=== PATIENT | female | born 1970 ===

== ENCOUNTER 2020-10-16 14:27 | Observation (INO) | payer OTHER ==
[2020-10-16] MEDS ORDERED: SODIUM CHLORIDE 0.9% 1000 ML 1,000 ML IV ONE (15:15)
[2020-10-16] MEDS ORDERED: MORPHINE 4 MG/1 ML INJ IV ONE (15:15)
[2020-10-16] MEDS ORDERED: ONDANSETRON 4 MG/2 ML INJ IV ONE (15:15)
--- NOTE | 2020-10-16 15:43 | Emergency Department Report ---
ED Abdominal Pain HPI - General Chief Complaint: Abdominal Pain Stated Complaint: N/V ABD PAINS Time Seen by Provider: 10/16/20 15:14 Source: patient Mode of arrival: Ambulatory Limitations: No Limitations - History of Present Illness Initial Comments: pt is a 49 yo female who presents to the ED with c/o epigastric abd pain that began yesterday. she states that today she feels the pain in the RLQ of her abdomen. she has associated N/V. she states that she was around two young girls yesterday who had symptoms of n/v. she denies any diarrhea, fever, urinary symptoms. no pMHx. no allergies to meds. she is post menopausal. she denies any past abdominal surgical history. - Related Data Home Medications Medication Instructions Recorded Confirmed Last Taken No Known Home Medications [No 10/16/20 10/16/20 Unknown Reported Home Medications] Allergies Allergy/AdvReac Type Severity Reaction Status Date / Time No Known Allergies Allergy Unverified 10/16/20 17:07 ED Review of Systems ROS: Stated complaint: N/V ABD PAINS Other details as noted in HPI Comment: All other systems reviewed and negative ED Past Medical Hx - Past Medical History Previous Medical History?: No - Surgical History Past Surgical History?: No - Social History Smoking Status: Current Every Day Smoker Substance Use Type: None - Medications Home Medications: Home Medications Medication Instructions Recorded Confirmed Last Taken Type No Known Home Medications [No 10/16/20 10/16/20 Unknown History Reported Home Medications] ED Physical Exam - General Limitations: No Limitations General appearance: alert, in no apparent distress - Head Head exam: Present: atraumatic, normocephalic - Eye Eye exam: Present: normal appearance - ENT ENT exam: Present: mucous membranes moist - Respiratory Respiratory exam: Present: normal lung sounds bilaterally. Absent: respiratory distress, wheezes, rales, rhonchi, stridor, chest wall tenderness, accessory muscle use, decreased breath sounds, prolonged expiratory - Cardiovascular Cardiovascular Exam: Present: regular rate, normal rhythm, normal heart sounds. Absent: systolic murmur, diastolic murmur, rubs, gallop - GI/Abdominal GI/Abdominal exam: Present: soft, tenderness (RLQ, epigastric), normal bowel sounds. Absent: distended, guarding, rebound, rigid - Neurological Exam Neurological exam: Present: alert, oriented X3 - Psychiatric Psychiatric exam: Present: normal affect, normal mood - Skin Skin exam: Present: warm, dry, intact ED Course Vital Signs 10/16/20 10/16/20 14:54 18:34 Temperature 98.4 F 98.3 F Pulse Rate 69 63 Respiratory 18 18 Rate Blood Pressure 149/89 Blood Pressure 138/61 [Left] O2 Sat by Pulse 95 99 Oximetry - Consultations Consultation #1: 10/16/20 17:[address] Grimaldo, general surgery, will consult on patient, advised to admit to hospitalist, give IV zosyn 10/16/20 17:07 spoke to Eric Saldana hospitalist, will accept and resume care of patient, will admit to hospitalist service ED Medical Decision Making - Lab Data Result diagrams: 10/16/20 15:19 10/16/20 15:19 Lab Results 10/16/20 10/16/20 Range/Units 15:19 15:19 WBC 13.3 H (4.5-11.0) K/mm3 RBC 5.11 H (3.65-5.03) M/mm3 Hgb 15.5 H (10.1-14.3) gm/dl Hct 45.6 H (30.3-42.9) % MCV 89 (79-97) fl MCH 30 (28-32) pg MCHC 34 (30-34) % RDW 14.0 (13.2-15.2) % Plt Count 278 (140-440) K/mm3 Lymph % (Auto) 12.1 L (13.4-35.0) % [place] % (Auto) 3.3 (0.0-7.3) % Eos % (Auto) 0.1 (0.0-4.3) % Baso % (Auto) 0.2 (0.0-1.8) % Lymph # (Auto) 1.6 (1.2-5.4) K/mm3 [place] # (Auto) 0.4 (0.0-0.8) K/mm3 Eos # (Auto) 0.0 (0.0-0.4) K/mm3 Baso # (Auto) 0.0 (0.0-0.1) K/mm3 Seg Neutrophils % 84.3 H (40.0-70.0) % Seg Neutrophils # 11.2 H (1.8-7.7) K/mm3 Sodium 140 (137-145) mmol/L Potassium 3.9 (3.6-5.0) mmol/L Chloride 103.3 (98-107) mmol/L Carbon Dioxide 21 L (22-30) mmol/L Anion Gap 20 mmol/L BUN 9 (7-17) mg/dL Creatinine 0.6 (0.6-1.2) mg/dL Estimated GFR > 60 ml/min BUN/Creatinine Ratio 15 % Glucose 131 H (65-100) mg/dL Calcium 10.6 H (8.4-10.2) mg/dL Total Bilirubin 0.80 (0.1-1.2) mg/dL AST 19 (5-40) units/L ALT 15 (7-56) units/L Alkaline Phosphatase 88 (35-129) units/L Total Protein 8.4 H (6.3-8.2) g/dL Albumin 5.1 H (3.9-5) g/dL Albumin/Globulin Ratio 1.5 % Lipase 61 H (13-60) units/L - Radiology Data Radiology results: report reviewed Ordering Physician: AGUSTIN WAY Date of Service: 10/16/20 Procedure(s): CT abdomen pelvis w con Accession Number(s): [id number] cc: AGUSTIN WAY CT abdomen pelvis w con INDICATION / CLINICAL INFORMATION: Right lower quadrant abdominal pain, epigastric pain, nausea and vomiting. TECHNIQUE: Axial CT imaging of abdomen and pelvis was obtained with IV contrast. Coronal and sagittal reformatted imaging obtained and reviewed. All CT scans at this location are performed using CT dose reduction for ALARA by means of automated exposure control. COMPARISON: None available. FINDINGS: CT abdomen with contrast demonstrates normal appearance of the liver, spleen, pancreas, kidneys, and adrenal glands. Gallbladder is present and appears grossly unremarkable. No biliary dilatation. No hydronephrosis or renal mass. Abdominal aorta is unremarkable. CT pelvis with contrast demonstrates the presence of appendicitis. The appendix is retrocecal in location and contains a 7 mm proximal appendicolith. The appendix is enlarged and mild to moderately inflamed. No evidence of perforation at this time. The remainder of the pelvis is unremarkable. No pelvic mass or free fluid. GI tract is grossly unremarkable. Visualized lung bases are clear. No acute osseous abnormality. IMPRESSION: 1. Findings are consistent with acute appendicitis. Please note that the appendix is retrocecal in location. There is a 7 mm calcified appendicolith noted within the proximal appendix. 2. No other significant abnormality at this time. Signer Name: Carla Howe MD Signed: 10/16/2020 4:53 PM Workstation Name: [id number] Transcribed By: Dictated By: Carla Howe MD Electronically Authenticated By: Carla Howe MD Signed Date/Time: 10/16/201652 DD/ 49 TD/TT: - Medical Decision Making pt is a 49 yo female who presents to the ED with c/o epigastric abd pain that began yesterday. she states that today she feels the pain in the RLQ of her abdomen. she has associated N/V. she states that she was around two young girls yesterday who had symptoms of n/v. she denies any diarrhea, fever, urinary symptoms. no pMHx. no allergies to meds. she is post menopausal. she denies any past abdominal surgical history. Vitals are stable. On exam patient has epigastric and right lower quadrant tenderness to palpation. Labs with elevated white blood cell count of 13,000. UA without evidence of UTI. CT abdomen pelvis with IV contrast 1. Findings are consistent with acute appendicitis. Please note that the appendix is retrocecal in location. There is a 7 mm calcified appendicolith noted within the proximal appendix. 2. No other significant abnormality at this time. spoke with Dr. Grimaldo, general surgery, will consult on patient, advised to admit to hospitalist, give IV zosyn. spoke to Eric Saldana hospitalist, will accept and resume care of patient, will admit to hospitalist service. Dr. Grimaldo plans to take patient to OR. pt given meds and made NPO and admitted to hospitalist. Critical care attestation.: If time is entered above; I have spent that time in minutes in the direct care of this critically ill patient, excluding procedure time. ED Disposition Clinical Impression: Acute appendicitis Qualifiers: Acute appendicitis type: with localized peritonitis Appendicitis gangrene presence: without gangrene Appendicitis perforation presence: without perforation Appendicitis abscess presence: without abscess Qualified Code(s): K35.30 - Acute appendicitis with localized peritonitis, without perforation or gangrene Leukocytosis Qualifiers: Leukocytosis type: unspecified Qualified Code(s): D72.829 - Elevated white blood cell count, unspecified Disposition: DC-09 OP ADMIT IP TO THIS HOSP Is pt being admited?: Yes Does the pt Need Aspirin: No Condition: Fair
[2020-10-16 15:47] LABS: Basophils % (Auto) 0.2 % (0.0-1.8); Eosinophils % (Auto) 0.1 % (0.0-4.3); Hematocrit 45.6 % (30.3-42.9); Hemoglobin 15.5 gm/dl (10.1-14.3); Lymphocytes # (Auto) 1.6 K/mm3 (1.2-5.4); Lymphocytes % (Auto) 12.1 % (13.4-35.0); Mean Corpuscular HGB Conc 34 % (30-34); Mean Corpuscular Volume 89 fl (79-97); Monocytes # (Auto) 0.4 K/mm3 (0.0-0.8); Monocytes % (Auto) 3.3 % (0.0-7.3); Platelet Count 278 K/mm3 (140-440); Red Blood Count 5.11 M/mm3 (3.65-5.03)
[2020-10-16 15:58] LABS: Alanine Aminotransferase 15 units/L (7-56); Albumin 5.1 g/dL (3.9-5); Blood Urea Nitrogen 9 mg/dL (7-17); Calcium 10.6 mg/dL (8.4-10.2); Hemolysis Index 6
[2020-10-16 16:00] LABS: BUN/Creatinine Ratio 15
[2020-10-16] MEDS ORDERED: HYDROmorphone 1 MG/1 ML INJ IV ONE (16:00)
--- NOTE | 2020-10-16 16:58 | Cat Scan Report ---
CT abdomen pelvis w con INDICATION / CLINICAL INFORMATION: Right lower quadrant abdominal pain, epigastric pain, nausea and vomiting. TECHNIQUE: Axial CT imaging of abdomen and pelvis was obtained with IV contrast. Coronal and sagittal reformatte d imaging obtained and reviewed. All CT scans at this location are performed using CT dose reduction for ALARA by means of automated exposure control. COMPARISON: None available. FINDINGS: CT abdomen with contrast demonstrates normal appearance of the liver, spleen, pancreas, kidneys, and adrenal glands. Gallbladder is present and appears grossly unremarkable. No biliary dilatation. No hy dronephrosis or renal mass. Abdominal aorta is unremarkable. CT pelvis with contrast demonstrates the presence of appendicitis. The appendix is retrocecal in loca tion and contains a 7 mm proximal appendicolith. The appendix is enlarged and mild to moderately infl kim. No evidence of perforation at this time. The remainder of the pelvis is unremarkable. No pelvic mass or free fluid. GI tract is grossly unrema rkable. Visualized lung bases are clear. No acute osseous abnormality. IMPRESSION: 1. Findings are consistent with acute appendicitis. Please note that the appendix is retrocecal in lo cation. There is a 7 mm calcified appendicolith noted within the proximal appendix. 2. No other significant abnormality at this time. Signer Name: Carla Howe MD Signed: 10/16/2020 4:53 PM Workstation Name: [id number]
[2020-10-16] MEDS ORDERED: PIPERACIL/TAZOBACTA 4.5/NS 100 4.5 GM/100 ML VIAL IV ONE (16:59)
[2020-10-16] MEDS ORDERED: ACETAMINOPHEN 325 MG TAB PO PRN (17:07)
--- NOTE | 2020-10-16 17:07 | History and Physical Report ---
History of Present Illness Chief complaint: My stomach is hurting History of present illness: 49 YO Female with Nicotine Dependence presents to ED for evaluation. Patient reports "my stomach is hurting". Patient states that she had experienced abdominal pain over the past 1 day with persistent symptoms over the same timeframe. Patient states that pain is 4/10, constant, localized to the right lower quadrant, associated with nausea, associated with multiple episodes of vomiting. Patient reports inability to tolerate oral intake. Patient transported to [facility] via private vehicle for further care and evaluation of the aforementioned symptoms. The patient was seen and evaluated in the emergency department. All lab and imaging studies reviewed. Patient underwent CT scan of the abdomen and pelvis which revealed acute appendicitis. Patient also found to have systemic inflammatory response syndrome. Patient treated with IV antibiotic therapy, and bowel rest. Surgical team consulted. Patient is pending surgical intervention as per surgical team. Patient denies fever, chills, chest pain, palpitation, productive cough, skin rash, recent ill contacts, ingestion of food/water from new or different sources, or known exposure to COVID-19. No prior admission for review. No medication listed at time of admission for reconciliation. Past History Past Medical History: other (See HPI) Past Surgical History: No surgical history, Other (Reviewed) Social history: single, smoking. denies: alcohol abuse, prescription drug abuse Family history: hypertension Medications and Allergies Allergies Allergy/AdvReac Type Severity Reaction Status Date / Time No Known Allergies Allergy Unverified 10/16/20 17:07 Home Medications Medication Instructions Recorded Confirmed Last Taken Type No Known Home Medications [No 10/16/20 10/16/20 Unknown History Reported Home Medications] Active Meds: Active Medications Piperacillin Sod/Tazobactam Sod (Zosyn/Ns 4.5gm/100ml) 4.5 gm in 100 mls @ 200 mls/hr IV ONCE ONE; Protocol Stop: 10/16/20 17:28 Review of Systems Constitutional: no weight loss, no weight gain, no fever, no chills Ears, nose, mouth and throat: no ear pain, no ear discharge, no tinnitis, no decreased hearing, no nose pain Breasts: no change in shape, no swelling, no mass Cardiovascular: no chest pain, no orthopnea, no palpitations, no rapid/irregular heart beat, no edema, no lightheadedness, no shortness of breath Respiratory: no cough, no cough with sputum, no excessive sputum, no hemoptysis, no shortness of breath, no dyspnea on exertion Gastrointestinal: abdominal pain, nausea, vomiting, no diarrhea, no constipation, no coffee ground emesis, no BRBPR, no melena Genitourinary Female: no pelvic pain, no flank pain, no dysuria, no urinary frequency, no urgency Rectal: no pain, no incontinence, no bleeding Musculoskeletal: no neck stiffness, no neck pain, no shooting arm pain, no low back pain Integumentary: no rash, no pruritis, no redness, no sores, no wounds, no jaundice Neurological: no head injury, no transient paralysis, no paralysis, no parath esias, no numbness, no tingling, no syncope, no tremors Psychiatric: no anxiety, no memory loss, no change in sleep habits, no insomnia, no hypersomnia, no change in appetite, no change in libido, no suicidal ideation Endocrine: no cold intolerance, no polyphagia, no excessive thirst, no excessive sweating, no flushing Hematologic/Lymphatic: no easy bruising, no easy bleeding, no lymphadenopathy Allergic/Immunologic: no wheezing, no persistent infections, no anaphylaxis Exam - Constitutional Vitals: Temp Pulse Resp BP Pulse Ox 98.4 F 69 18 149/89 95 10/16/20 14:54 10/16/20 14:54 10/16/20 14:54 10/16/20 14:54 10/16/20 14:54 General appearance: Present: mild distress - EENT Eyes: Present: PERRL ENT: hearing intact, clear oral mucosa - Neck Neck: Present: supple, normal ROM - Respiratory Respiratory effort: normal Respiratory: bilateral: CTA - Cardiovascular Heart Sounds: Present: S1 & S2. Absent: rub, click - Extremities Extremities: pulses symmetrical, No edema Peripheral Pulses: within normal limits - Abdominal General gastrointestinal: Present: soft, non-tender, non-distended, normal bowel sounds Localized gastrointestinal: tender: RLQ Female genitourinary: Present: normal - Integumentary Integumentary: Present: clear, warm, dry - Musculoskeletal Musculoskeletal: gait normal, strength equal bilaterally - Psychiatric Psychiatric: appropriate mood/affect, intact judgment & insight - Neurologic Neurologic: CNII-XII intact, moves all extremities Results - Labs CBC & Chem 7: 10/16/20 15:19 10/16/20 15:19 Labs: Abnormal lab results 10/16/20 10/16/20 Range/Units 15:19 15:19 WBC 13.3 H (4.5-11.0) K/mm3 RBC 5.11 H (3.65-5.03) M/mm3 Hgb 15.5 H (10.1-14.3) gm/dl Hct 45.6 H (30.3-42.9) % Lymph % (Auto) 12.1 L (13.4-35.0) % Seg Neutrophils % 84.3 H (40.0-70.0) % Seg Neutrophils # 11.2 H (1.8-7.7) K/mm3 Carbon Dioxide 21 L (22-30) mmol/L Glucose 131 H (65-100) mg/dL Calcium 10.6 H (8.4-10.2) mg/dL Total Protein 8.4 H (6.3-8.2) g/dL Albumin 5.1 H (3.9-5) g/dL Lipase 61 H (13-60) units/L Assessment and Plan - Patient Problems (1) Acute appendicitis Current Visit: Yes Status: Acute Qualifiers: Appendicitis perforation presence: without perforation Plan to address problem: CT scan abdomen and pelvis, IV antibiotic therapy, IV fluid resuscitation therapy, bowel rest, n.p.o., surgical team consulted in ED for surgical intervention., Pain control. (2) Systemic inflammatory response syndrome Current Visit: Yes Status: Acute Plan to address problem: CBC, CMP, IV antibiotic therapy, supportive care. (3) Nicotine dependence Current Visit: Yes Status: Acute Qualifiers: Nicotine product type: cigarettes Substance use status: in withdrawal Qualified Code(s): F17.213 - Nicotine dependence, cigarettes, with withdrawal Plan to address problem: Smoking cessation counseling, supportive care, behavior change counseling, +15 minutes. (4) DVT prophylaxis Current Visit: Yes Status: Acute Plan to address problem: SCD to bilateral lower extremities while in bed, patient is ambulatory.
[2020-10-16] MEDS ORDERED: KETOROLAC 30 MG/1 ML INJ IV ONE (17:15)
--- NOTE | 2020-10-16 17:16 | Event Note ---
Face to Face: For this encounter I have reviewed the PA/PACKAGE WRAPPER documentation, treatment plan, medical decision making, and I had face to face time with this patient. Patient a 49-year-old female with some epigastric and right lower quadrant pain with nausea vomiting. CT shows acute appendicitis. Patient made n.p.o. given Zosyn. Pain is pain controlled and Dr. Grimaldo with general surgery has been consulted as well.
[2020-10-16 17:43] LABS: Bacteria,Urine 1+ /HPF (Negative); Bilirubin,Urine NEG (Negative); Blood,Urine NEG (Negative); Color,Urine Straw (Yellow); Mucus,Urine FEW /HPF; Protein,Urine <15 mg/dL mg/dL (Negative); Urobilinogen,Urine < 2.0 mg/dL (<2.0); WBC,Urine < 1.0 /HPF (0.0-6.0)
[2020-10-16] MEDS ORDERED: BUPIVACAINE-EPINEPHRINE/PF 0.5%-1:200,000 (30 ML) VIAL INFILTRATI ONE ×2 (18:38→20:20)
[2020-10-16] MEDS ORDERED: dexAMETHasone 20 MG/5 ML VIAL ONE (18:38)
[2020-10-16] MEDS ORDERED: ONDANSETRON 4 MG/2 ML INJ ONE (18:38)
[2020-10-16] MEDS ORDERED: LIDOCAINE MPF (2%) 20 MG/1 ML VIAL 5 ML ONE (18:38)
[2020-10-16] MEDS ORDERED: ROCURONIUM 50 MG/5 ML INJ IV ONE (18:38)
[2020-10-16] MEDS ORDERED: KETOROLAC 30 MG/1 ML INJ ONE (18:38)
[2020-10-16] MEDS ORDERED: HYDROmorphone 1 MG/1 ML INJ ONE (18:39)
[2020-10-16] MEDS ORDERED: propofoL 200 MG/20 ML VIAL IV ONE (18:40)
--- NOTE | 2020-10-16 19:07 | Anesthesia Consultation ---
Anesthesia Consult and Med Hx Date of service: 10/16/20 - Airway Anesthetic Teeth Evaluation: Partials (Multiple lost teeth) ROM Head & Neck: Adequate Mental/Hyoid Distance: Adequate Mallampati Class: Class I Intubation Access Assessment: Good - Pulmonary Exam CTA: Yes - Pre-Operative Health Status ASA Pre-Surgery Classification: ASA2 Proposed Anesthetic Plan: General - Pulmonary Hx Smoking: Yes (Half a pack a day) Hx Asthma: No Hx Respiratory Symptoms: No SOB: No - Cardiovascular System Hx Hypertension: No Hx Coronary Artery Disease: No - Central Nervous System Hx Neuromuscular Disorder: No Hx Seizures: No Hx Psychiatric Problems: No - Gastrointestinal Hx Ulcer: No Hx Gastroesophageal Reflux Disease: No - Endocrine Hx Renal Disease: No Hx Liver Disease: No Hx Insulin Dependent Diabetes: No Hx Non-Insulin Dependent Diabetes: No Hx Thyroid Disease: No - Hematic Hx Anemia: No - Other Systems Hx Alcohol Use: Yes (Ocassionally) Hx Obesity: No - Additional Comments Anesthesia Medical History Comments: Patient denied previous anesthesia complication
--- NOTE | 2020-10-16 19:07 | Anesthesia Day of Surgery ---
Anesthesia Day of Surgery - Day of Surgery Patient Examined: Yes Patient H&P Reviewed: Yes Patient is NPO: Yes Beta Blockers: No Cardiac Clearance: No Pulmonary Clearance: No
[2020-10-16] MEDS ORDERED: LACTATED RINGERS 1,000 ML ONE ×2 (19:16→20:34)
--- NOTE | 2020-10-16 19:29 | Consultation ---
History of Present Illness Consult date: 10/16/20 - History of present illness History of present illness: 49 yo female with 1 day h/o RLQ pain, nausea and vomiting. Past History Past Medical History: other (See HPI) Past Surgical History: No surgical history, Other (Reviewed) Social history: single, smoking. denies: alcohol abuse, prescription drug abuse Family history: hypertension Medications and Allergies Allergies Allergy/AdvReac Type Severity Reaction Status Date / Time No Known Allergies Allergy Unverified 10/16/20 17:07 Home Medications Medication Instructions Recorded Confirmed Last Taken Type No Known Home Medications [No 10/16/20 10/16/20 Unknown History Reported Home Medications] Active Meds: Active Medications Acetaminophen (Acetaminophen 325 Mg Tab) 650 mg PO Q4H PRN PRN Reason: Pain MILD(1-3)/Fever >100.5/CAPONE Hydromorphone HCl (Hydromorphone 1 Mg/1 Ml Inj) 0.5 mg IV Q3H PRN PRN Reason: Pain , Severe (7-10) Piperacillin Sod/Tazobactam Sod (Zosyn/Ns 4.5gm/100ml) 4.5 gm in 100 mls @ 200 mls/hr IV Q6H CURTIS; Protocol Stop: 10/16/20 23:01 Morphine Sulfate (Morphine 2 Mg/1 Ml Inj) 2 mg IV Q4H PRN PRN Reason: Pain, Moderate (4-6) Ondansetron HCl (Ondansetron 4 Mg/2 Ml Inj) 4 mg IV Q8H PRN PRN Reason: Nausea And Vomiting Sodium Chloride (Sodium Chloride 0.9% 10 Ml Flush Syringe) 10 ml IV BID CURTIS Sodium Chloride (Sodium Chloride 0.9% 10 Ml Flush Syringe) 10 ml IV PRN PRN PRN Reason: LINE FLUSH Review of Systems All systems: negative (none.) Exam Vital Signs Temp Pulse Resp BP Pulse Ox 98.4 F 69 18 149/89 95 10/16/20 14:54 10/16/20 14:54 10/16/20 14:54 10/16/20 14:54 10/16/20 14:54 - General physical appearance Positive: well developed, well nourished, no distress - Eyes Positive: PERRL, normal occular movement - ENT Positive: normal pinna, normal nares, normal mucosa, no hearing loss, no congestion - Neck Positive: no masses, no bruits, trachea midline, no venous distension - Respiratory Positive: normal expansion, normal respiratory effort, clear to auscultation - Cardiovascular Rhythm: regular Heart Sounds: Present: S1 & S2. Absent: rub, click - Extremities Extremities: no ischemia, pulses symmetrical, No edema - Breasts Breasts: normal, no mass, no skin changes - Abdomen Abdomen: Present: soft, bowel sounds normal, other (Mildly tender to deep palpation in the RLQ without rebound or guarding.). Absent: distended Hernia: none - Genitourinary Male Genitourinary: normal Female Genitourinary: normal - Integumentary no rash, no growths, no abnormal pigmentation - Neurologic Neurologic: alert and oriented to time, place and person, motor strength and sensation are grossly intact - Musculoskeletal normal gait, normal posture - Psychiatric Psychiatric: appropriate mood/affect, intact judgment & insight Results - Labs 10/16/20 15:19 10/16/20 15:19 Abnormal lab results 10/16/20 10/16/20 10/16/20 Range/Units 15:19 15:19 17:15 WBC 13.3 H (4.5-11.0) K/mm3 RBC 5.11 H (3.65-5.03) M/mm3 Hgb 15.5 H (10.1-14.3) gm/dl Hct 45.6 H (30.3-42.9) % Lymph % (Auto) 12.1 L (13.4-35.0) % Seg Neutrophils % 84.3 H (40.0-70.0) % Seg Neutrophils # 11.2 H (1.8-7.7) K/mm3 Carbon Dioxide 21 L (22-30) mmol/L Glucose 131 H (65-100) mg/dL Calcium 10.6 H (8.4-10.2) mg/dL Total Protein 8.4 H (6.3-8.2) g/dL Albumin 5.1 H (3.9-5) g/dL Lipase 61 H (13-60) units/L Ur Specific [place] 1.059 H (1.003-1.030) Diabetes panel 10/16/20 Range/Units 15:19 Sodium 140 (137-145) mmol/L Potassium 3.9 (3.6-5.0) mmol/L Chloride 103.3 (98-107) mmol/L Carbon Dioxide 21 L (22-30) mmol/L BUN 9 (7-17) mg/dL Creatinine 0.6 (0.6-1.2) mg/dL Glucose 131 H (65-100) mg/dL Calcium 10.6 H (8.4-10.2) mg/dL AST 19 (5-40) units/L ALT 15 (7-56) units/L Alkaline Phosphatase 88 (35-129) units/L Total Protein 8.4 H (6.3-8.2) g/dL Albumin 5.1 H (3.9-5) g/dL Calcium panel 10/16/20 Range/Units 15:19 Calcium 10.6 H (8.4-10.2) mg/dL Albumin 5.1 H (3.9-5) g/dL Pituitary panel 10/16/20 Range/Units 15:19 Sodium 140 (137-145) mmol/L Potassium 3.9 (3.6-5.0) mmol/L Chloride 103.3 (98-107) mmol/L Carbon Dioxide 21 L (22-30) mmol/L BUN 9 (7-17) mg/dL Creatinine 0.6 (0.6-1.2) mg/dL Glucose 131 H (65-100) mg/dL Calcium 10.6 H (8.4-10.2) mg/dL Adrenal panel 10/16/20 Range/Units 15:19 Sodium 140 (137-145) mmol/L Potassium 3.9 (3.6-5.0) mmol/L Chloride 103.3 (98-107) mmol/L Carbon Dioxide 21 L (22-30) mmol/L BUN 9 (7-17) mg/dL Creatinine 0.6 (0.6-1.2) mg/dL Glucose 131 H (65-100) mg/dL Calcium 10.6 H (8.4-10.2) mg/dL Total Bilirubin 0.80 (0.1-1.2) mg/dL AST 19 (5-40) units/L ALT 15 (7-56) units/L Alkaline Phosphatase 88 (35-129) units/L Total Protein 8.4 H (6.3-8.2) g/dL Albumin 5.1 H (3.9-5) g/dL - Imaging CT scan - abdomen: report reviewed CT scan - pelvis: report reviewed Assessment and Plan - Patient Problems (1) Acute appendicitis Current Visit: Yes Status: Acute Qualifiers: Appendicitis perforation presence: without perforation Plan to address problem: 1) IV Zosyn 2) To OR for lap appendectomy 3) SCD
[2020-10-16] MEDS ORDERED: SODIUM CHLORIDE 0.9% IRR 1,500 ML BOTTLE IR ONE (20:21)
[2020-10-16] MEDS ORDERED: GLYCOPYRROLATE 0.4 MG/2 ML INJ ONE (20:32)
[2020-10-16] MEDS ORDERED: NEOSTIGMINE 10MG/10 ML INJ MDV ONE (20:32)
--- NOTE | 2020-10-16 20:52 | Procedure Note ---
Date of procedure: 10/16/20 Pre-op diagnosis: acute appendicitis Post-op diagnosis: same Procedure: Laparoscopic appendectomy Description of procedure: Pt was placed supine on the OR table. General anesthesia by LMA was administered. Abdomen was prepped and draped. Proposed trocar sites were infiltrated with 9 ml of 0.5% Marcaine with epinephrine. A small infraumbilical incision was made, linea alba incised and the peritoneal cavity entered. A Kathleen port was inserted into the peritoneal cavity and pneumoperitoneum established. Two 5 mm ports were inserted in the midline of the suprapubic space and laterally in the LLQ. Pt was positioned in a Trendelenburg position with the right side rotated upward. The appendix was immediately identified along the lateral wall adjacent to the cecum. The appendix was freed up from the side wall with the L-tip Bovie. Mesoappendix was cauterized and divided with the Ligasure. Base of the appendix was stapled and divided with a brown load of an endo-SOLE stapler. Appendix was placed in an endobag and the endobag removed via the infraumbilical fascial defect. The Kathleen port was replaced and all areas of dissection inspected for hemostasis which was excellent. The two 5 mm ports were removed and there was no bleeding from the port entry sites under low pressure. The Kathleen port was removed. The infraumbilical fascial defect was closed with 2 interrupted sutures of 0-Vicryl. Skin incisions were closed with running, subcuticular sutures of 4-0 Monocryl. Skin glue was applied. Pt tolerated the procedure well and was taken to PACU in stable condition. Anesthesia: other (LMA) Surgeon: YAEL MORTENSEN Estimated blood loss: minimal Pathology: list (appendix) Specimen disposition: to lab Condition: stable Disposition: PACU
--- NOTE | 2020-10-16 21:50 | Post Anesthesia Evaluation ---
- Post Anesthesia Evaluation Patient Participated: Yes Airway Patent: Yes Stable Respiratory Function: Yes Nausea/Vomiting: No Temp > 96.8F: Yes Pain Manageable: Yes Adequeate Hydration: Yes Anesthesia Complications: No Block Receding Appropriately: Not Applicable Patient on Ventilator: No
[2020-10-16] MEDS: HYDROmorphone 1 MG/1 ML INJ IV PRN (22:05)
[2020-10-16] MEDS ORDERED: PIPERACIL/TAZOBACTA 4.5/NS 100 4.5 GM/100 ML VIAL IV SCH (23:00)
[2020-10-17] MEDS: MORPHINE 2 MG/1 ML INJ IV PRN ×2 (03:33→07:32)
[2020-10-17 04:25] LABS: Hematocrit 42.9 % (30.3-42.9); Hemoglobin 14.6 gm/dl (10.1-14.3); Mean Corpuscular HGB Conc 34 % (30-34); Mean Corpuscular Volume 90 fl (79-97); Platelet Count 237 K/mm3 (140-440); Red Blood Count 4.79 M/mm3 (3.65-5.03); Red Cell Distribution Width 13.9 % (13.2-15.2)
[2020-10-17 04:33] LABS: Blood Urea Nitrogen 7 mg/dL (7-17); Calcium 9.4 mg/dL (8.4-10.2); Hemolysis Index 26
[2020-10-17 04:48] LABS: BUN/Creatinine Ratio 12
[2020-10-17 06:56] LABS: Anisocytosis 1+; Platelet Estimate Consistent w Auto; Total Cells Counted 100
[2020-10-17] MEDS: ONDANSETRON 4 MG/2 ML INJ IV PRN ×2 (07:32→16:26)
[2020-10-17] MEDS: HYDROmorphone 1 MG/1 ML INJ IV PRN ×3 (10:13→21:24)
--- NOTE | 2020-10-17 10:52 | XRay Report ---
ABDOMEN SINGLE VIEW INDICATION / CLINICAL INFORMATION: Abdominal pain. CT scan 10/16/2020 demonstrated acute appendicitis. COMPARISON: CT abdomen/pelvis 10/16/2020 FINDINGS: There is minimal gaseous prominence of small bowel. This may represent minimal adynamic ileus. Rectal gas is present. Stool is visible within the colon. Calcified appendicolith noted on yesterday's CT scan is not appreciated radiographically. IMPRESSION: Mild gaseous prominence of small bowel most consistent with minimal adynamic ileus. Signer Name: Carla Howe MD Signed: 10/17/2020 10:48 AM Workstation Name: [id number]
--- NOTE | 2020-10-17 11:38 | Progress Note ---
Assessment and Plan - Patient Problems (1) Acute appendicitis Current Visit: Yes Status: Acute Qualifiers: Acute appendicitis type: with localized peritonitis Appendicitis gangrene presence: without gangrene Appendicitis perforation presence: without perforation Appendicitis abscess presence: without abscess Qualified Code(s): K35.30 - Acute appendicitis with localized peritonitis, without perforation or gangrene Plan to address problem: 1) Regular diet 2) CBC in the am Subjective Date of service: 10/17/20 Patient Reports: Positive: no new complaints, feels better Objective Vital Signs - 12hr 10/17/20 10/17/20 10/17/20 00:43 04:21 07:19 Temperature 97.9 F 98.8 F Pulse Rate 78 64 Respiratory 18 18 Rate Blood Pressure 136/97 155/77 O2 Sat by Pulse 98 98 98 Oximetry - General physical appearance well developed, well nourished, no distress, severe distress - Abdomen soft, bowel sounds normal (Non-tender without rebound or guarding.) - Labs 10/17/20 03:23 10/17/20 03:23 Diabetes panel 10/16/20 10/17/20 Range/Units 15:19 03:23 Sodium 140 141 (137-145) mmol/L Potassium 3.9 4.4 (3.6-5.0) mmol/L Chloride 103.3 105.9 (98-107) mmol/L Carbon Dioxide 21 L 23 (22-30) mmol/L BUN 9 7 (7-17) mg/dL Creatinine 0.6 0.6 (0.6-1.2) mg/dL Glucose 131 H 138 H (65-100) mg/dL Calcium 10.6 H 9.4 (8.4-10.2) mg/dL AST 19 (5-40) units/L ALT 15 (7-56) units/L Alkaline Phosphatase 88 (35-129) units/L Total Protein 8.4 H (6.3-8.2) g/dL Albumin 5.1 H (3.9-5) g/dL Calcium panel 10/16/20 10/17/20 Range/Units 15:19 03:23 Calcium 10.6 H 9.4 (8.4-10.2) mg/dL Albumin 5.1 H (3.9-5) g/dL Pituitary panel 10/16/20 10/17/20 Range/Units 15:19 03:23 Sodium 140 141 (137-145) mmol/L Potassium 3.9 4.4 (3.6-5.0) mmol/L Chloride 103.3 105.9 (98-107) mmol/L Carbon Dioxide 21 L 23 (22-30) mmol/L BUN 9 7 (7-17) mg/dL Creatinine 0.6 0.6 (0.6-1.2) mg/dL Glucose 131 H 138 H (65-100) mg/dL Calcium 10.6 H 9.4 (8.4-10.2) mg/dL Adrenal panel 10/16/20 10/17/20 Range/Units 15:19 03:23 Sodium 140 141 (137-145) mmol/L Potassium 3.9 4.4 (3.6-5.0) mmol/L Chloride 103.3 105.9 (98-107) mmol/L Carbon Dioxide 21 L 23 (22-30) mmol/L BUN 9 7 (7-17) mg/dL Creatinine 0.6 0.6 (0.6-1.2) mg/dL Glucose 131 H 138 H (65-100) mg/dL Calcium 10.6 H 9.4 (8.4-10.2) mg/dL Total Bilirubin 0.80 (0.1-1.2) mg/dL AST 19 (5-40) units/L ALT 15 (7-56) units/L Alkaline Phosphatase 88 (35-129) units/L Total Protein 8.4 H (6.3-8.2) g/dL Albumin 5.1 H (3.9-5) g/dL
[2020-10-17] MEDS: D5W/0.45% NACL/KCL 20 MEQ 20 MEQ/1,000 ML BAG IV SCH (12:35)
[2020-10-17] MEDS ORDERED: ALUM-MAG HYDROXIDE-SIMETHICONE 200-200-20MG/5ML ORAL LIQD 30 ML PO ONE (22:30)
[2020-10-18] MEDS: D5W/0.45% NACL/KCL 20 MEQ 20 MEQ/1,000 ML BAG IV SCH ×2 (00:08→09:15)
--- NOTE | 2020-10-18 07:39 | Progress Note ---
Assessment and Plan -- Acute appendicitis Status post laparoscopic appendectomy by Dr. Grimaldo Placed on clear liquid diet today Ambulation per postop protocol Pain management as needed --Adynamic ileus Ambulation as tolerated, limited use of narcotics -- Systemic inflammatory response syndrome Due to appendicitis, trend down WBC Will defer to general surgery for antibiotic use -- Nicotine dependence Smoking cessation counseling, supportive care, behavior change counseling, +15 minutes. -- DVT prophylaxis SCD to bilateral lower extremities while in bed, patient is ambulatory. 10/17: c/o severe abdominal pain this am during ambulation. Stat abdomen xry showed possible ileus. GS notified. cont supportive care, iv fluid Subjective Date of service: 10/17/20 Interval history: Patient seen and examined. Medical records and medication list reviewed. No acute event overnight noted by the RN. Patient denies any chest pain or difficulty breathing. Patient is tolerating clear liquid diet. Complained of severe abdominal pain during ambulation today Abdominal x-ray showed gaseous distention of small bowel and possible adynamic ileus Discussed plan of care at bedside with patient. Objective - Exam Narrative Exam: GENERAL: well-developed and well-nourished elderly female lying on bed appeared to be in no discomfort. HEENT: Normocephalic. Atraumatic. No conjunctival congestion or icterus. Patient has moist mucous membranes. NECK: Supple. Trachea midline. CHEST/LUNGS: Clear to auscultated bilaterally, breathing nonlabored. No wheezes crackles or rhonchi. HEART/CARDIOVASCULAR: Regular in rate and rhythm. S1 and S2 positive. ABDOMEN: Abdomen with normal bowel sounds. Laparoscopic wounds are clean and dry SKIN: There is no rash. Warm and dry. NEURO: No focal motor deficit. Follows command. MUSCULOSKELETAL: No joint effusion or tenderness. EXTRIMITY: No edema, no cyanosis or clubbing. PSYCH: Cooperative. - Constitutional Vitals: Vital Signs - 12hr 10/17/20 10/18/20 10/18/20 19:45 00:14 04:15 Temperature 99.0 F 99.0 F 98.3 F Pulse Rate 71 59 L 71 Respiratory 20 20 20 Rate Blood Pressure 164/95 155/78 135/69 O2 Sat by Pulse 100 98 97 Oximetry - Labs CBC & Chem 7: 10/18/20 07:39 10/17/20 03:23
[2020-10-18 07:55] LABS: Basophils % (Auto) 0.4 % (0.0-1.8); Eosinophils % (Auto) 0.3 % (0.0-4.3); Hematocrit 38.4 % (30.3-42.9); Lymphocytes # (Auto) 3.3 K/mm3 (1.2-5.4); Lymphocytes % (Auto) 43.2 % (13.4-35.0); Mean Corpuscular HGB Conc 34 % (30-34); Mean Corpuscular Volume 90 fl (79-97); Monocytes # (Auto) 0.4 K/mm3 (0.0-0.8); Monocytes % (Auto) 5.9 % (0.0-7.3); Platelet Count 211 K/mm3 (140-440); Red Blood Count 4.25 M/mm3 (3.65-5.03); Red Cell Distribution Width 13.9 % (13.2-15.2)
[2020-10-18] MEDS: ONDANSETRON 4 MG/2 ML INJ IV PRN ×2 (08:50→21:28)
[2020-10-18] MEDS: HYDROmorphone 1 MG/1 ML INJ IV PRN ×2 (09:16→15:38)
--- NOTE | 2020-10-18 12:09 | Progress Note ---
Assessment and Plan - Patient Problems (1) Acute appendicitis Current Visit: Yes Status: Acute Qualifiers: Acute appendicitis type: with localized peritonitis Appendicitis gangrene presence: without gangrene Appendicitis perforation presence: without perforation Appendicitis abscess presence: without abscess Qualified Code(s): K35.30 - Acute appendicitis with localized peritonitis, without perforation or gangrene Plan to address problem: 1) Satisfactory course - okay for discharge from my perspective 2) Rx - narcotic of choice and Cipro, 500 mg po bid X 7 days 3) F/u in my office in 2 weeks 4) No lifting or straining 5) May shower Subjective Date of service: 10/18/20 Patient Reports: Positive: no new complaints, feels better Objective Vital Signs - 12hr 10/18/20 10/18/20 10/18/20 00:14 04:15 08:12 Temperature 99.0 F 98.3 F 98.6 F Pulse Rate 59 L 71 69 Respiratory 20 20 18 Rate Blood Pressure 155/78 135/69 143/92 O2 Sat by Pulse 98 97 98 Oximetry 10/18/20 08:47 Temperature Pulse Rate Respiratory Rate Blood Pressure O2 Sat by Pulse 98 Oximetry - Abdomen PM_46_EXABD1 4, PM_46_EXABD1 6, PM_46_EXABD1 8 Hernia: none - Labs 10/18/20 07:39 10/17/20 03:23
--- NOTE | 2020-10-18 13:06 | Discharge Summary ---
Providers - Providers Date of Admission: 10/16/20 17:07 Date of discharge: 10/19/20 Attending physician: RASHAAD AGUILAR 10/16/20 17:05 Consult to Physician [CONS] Stat Comment: Consulting Provider: YAEL GRIMALDO Physician Instructions: Reason For Exam: acute appendicitis Primary care physician: STICK WELDER Hospitalization Condition: Fair Hospital course: This is a 49-year-old female presented to the hospital with complaints of abdominal pain over 1 day localized to the right lower quadrant associated with nausea and multiple episodes of vomiting. Patient underwent CT scan of the abdomen pelvis in the ER which revealed acute appendicitis. Patient also noted to have sign of systemic inflammatory response syndrome. Patient was given IV antibiotic in the ER, kept n.p.o. and general surgery was consulted. Patient underwent laparoscopic appendectomy. Postoperatively patient complained of severe abdominal pain, abdominal x-ray revealed gaseous distention of small bowel loops-adynamic ileus. Patient encouraged ambulation and limited use of narcotics. Patient was tolerating diet, had bowel movement. Her symptom improved and cleared by surgery for discharge. Patient was then discharged home in stable condition with outpatient follow-up. Discharge diagnosis: Acute appendicitis, status post laparoscopic appendectomy Adynamic ileus, resolved SIRS, due to acute appendicitis -Manifested by acute abdominal pain with nausea vomiting, leukocytosis, tachycardia and positive radiological finding of appendicitis. Tobacco abuse history, counseled Disposition: DC-01 TO HOME OR SELFCARE Time spent for discharge: 34 minutes Core Measure Documentation - Palliative Care Palliative Care/ Comfort Measures: Not Applicable - Core Measures Any of the following diagnoses?: none Exam - Physical Exam Narrative exam: GENERAL: well-developed and well-nourished middle-aged female lying on bed appeared to be in no discomfort. HEENT: Normocephalic. Atraumatic. No conjunctival congestion or icterus. Patient has moist mucous membranes. NECK: Supple. Trachea midline. CHEST/LUNGS: Clear to auscultated bilaterally, breathing nonlabored. No wheezes crackles or rhonchi. HEART/CARDIOVASCULAR: Regular in rate and rhythm. S1 and S2 positive. ABDOMEN: Abdomen with normal bowel sounds. Laparoscopic wounds are clean and dry SKIN: There is no rash. Warm and dry. NEURO: No focal motor deficit. Follows command. MUSCULOSKELETAL: No joint effusion or tenderness. EXTRIMITY: No edema, no cyanosis or clubbing. PSYCH: Cooperative. - Constitutional Vitals: Temp Pulse Resp BP Pulse Ox 98.6 F 69 18 143/92 98 10/18/20 08:12 10/18/20 08:12 10/18/20 08:12 10/18/20 08:12 10/18/20 08:47 Plan Activity: advance as tolerated Weight Bearing Status: Non-Weight Bearing (No straining no weight lifting) Diet: advance as tolerated Additional Instructions: Follow-up with Dr. Grimaldo in 2 weeks Follow up with: PRIMARY CAREMD [Primary Care Provider] - 3-5 Days YAEL GRIMALDO MD [Staff Physician] - 7 Days CAROLYN BENTON MD [Staff Physician] - 7 Days Prescriptions: Ciprofloxacin HCl [Ciprofloxacin TAB] 500 mg PO Q12HR #14 tab HYDROcodone/APAP 5-325 [[place] 5/325] 1 each PO Q6HR PRN #7 tablet PRN Reason: Pain Pantoprazole [Protonix TAB] 40 mg PO QDAC #30 tablet
[2020-10-18] MEDS ORDERED: MORPHINE 2 MG/1 ML INJ IV PRN (17:40)
--- NOTE | 2020-10-18 18:18 | XRay Report ---
ABDOMEN 1 VIEW(S) INDICATION / CLINICAL INFORMATION: epigastric pain. COMPARISON: None available. FINDINGS: TUBES / LINES: None. BOWEL GAS PATTERN/EXTRALUMINAL GAS: No significant abnormality. No pneumatosis or secondary signs of free air. ADDITIONAL FINDINGS: No significant additional findings. IMPRESSION: 1. No significant abnormality. Signer Name: Soren Villegas MD Signed: 10/18/2020 6:14 PM Workstation Name: [email or web address]
--- NOTE | 2020-10-18 18:24 | XRay Report ---
CHEST 2 VIEWS INDICATION / CLINICAL INFORMATION: epigastric pain. COMPARISON: None available. FINDINGS: SUPPORT DEVICES: None. HEART / MEDIASTINUM: No significant abnormality. LUNGS / PLEURA: No significant pulmonary or pleural abnormality. No pneumothorax. ADDITIONAL FINDINGS: There is free air under the right hemidiaphragm. IMPRESSION: 1. Free air in the abdomen is likely due to to recent appendectomy. Signer Name: Soren Villegas MD Signed: 10/18/2020 6:20 PM Workstation Name: [id number]
[2020-10-18] MEDS ORDERED: SIMETHICONE 80 MG CHEW TAB PO PRN (20:40)
[2020-10-18] MEDS ORDERED: PANTOPRAZOLE 40 MG TAB PO ONE (21:45)
[2020-10-19] MEDS ORDERED: PANTOPRAZOLE 40 MG TAB PO SCH (07:30)
[2020-10-19 08:01] VITALS: BP 139/97
--- NOTE | 2020-10-19 10:23 | Progress Note ---
Assessment and Plan -- Acute appendicitis Status post laparoscopic appendectomy by Dr. Grimaldo Placed on clear liquid diet today Ambulation per postop protocol Pain management as needed --Adynamic ileus Ambulation as tolerated, limited use of narcotics -- Systemic inflammatory response syndrome Due to appendicitis, trend down WBC Will defer to general surgery for antibiotic use -- Nicotine dependence Smoking cessation counseling, supportive care, behavior change counseling, +15 minutes. -- DVT prophylaxis SCD to bilateral lower extremities while in bed, patient is ambulatory. 10/17: c/o severe abdominal pain this am during ambulation. Stat abdomen xry showed possible ileus. GS notified. cont supportive care, iv fluid 10/18: Patient was planned for discharge today but patient refused to go home. She states that she still have abdominal pain the reason that she came to the hospital and doing appendectomy did not resolve her problem. She insisted to be get reevaluated by general surgery again and refused to leave the hospital. Patient was very agitated and argumentative. I spoke with patient's son by phone and also patient's sister. Apparently patient having chronic abdominal pain for about a year and had prior admissions to different hospitals. I explained the patient and patient's son that work-up in our hospital showed appendicitis with and patient has gone for laparoscopic appendectomy. CT abdomen pelvis on admission did not show any other acute issue. I will place her on PPI for possible GERD, will also get repeat chest x-ray abdominal x-ray stat EKG and troponin level. I discussed with Dr. Grimaldo. Dr. Grimaldo said he will reevaluate the patient again tomorrow morning. We will continue supportive care. Will discontinue all IV narcotics except we will keep morphine 1 mg IV every 4 hour as needed for pain. Will follow pending test results. Will advance diet to full liquid. Encouraged ambulation. Subjective Date of service: 10/18/20 Interval history: Patient seen and examined. Medical records and medication list reviewed. No acute event overnight noted by the RN. Patient denies any chest pain or difficulty breathing. Patient on clear liquid diet. Complained of severe abdominal pain during ambulation, also c/o gaging during ea ting. no vomiting Discussed plan of care at bedside with patient with RN. Objective - Exam Narrative Exam: GENERAL: well-developed and well-nourished elderly female lying on bed appeared to be in no discomfort. HEENT: Normocephalic. Atraumatic. No conjunctival congestion or icterus. Patient has moist mucous membranes. NECK: Supple. Trachea midline. CHEST/LUNGS: Clear to auscultated bilaterally, breathing nonlabored. No wheezes crackles or rhonchi. HEART/CARDIOVASCULAR: Regular in rate and rhythm. S1 and S2 positive. ABDOMEN: Abdomen with normal bowel sounds. Laparoscopic wounds are clean and dry SKIN: There is no rash. Warm and dry. NEURO: No focal motor deficit. Follows command. MUSCULOSKELETAL: No joint effusion or tenderness. EXTRIMITY: No edema, no cyanosis or clubbing. PSYCH: Cooperative. - Constitutional Vitals: Vital Signs - 12hr 10/19/20 10/19/20 10/19/20 00:58 06:01 07:49 Temperature 98.4 F 98.1 F 99.0 F Pulse Rate 75 64 73 Respiratory 18 18 16 Rate Blood Pressure 123/70 147/81 139/97 O2 Sat by Pulse 97 98 99 Oximetry 10/19/20 08:08 Temperature Pulse Rate Respiratory Rate Blood Pressure O2 Sat by Pulse 99 Oximetry - Labs CBC & Chem 7: 10/18/20 07:39 10/17/20 03:23 HEART Score - HEART Score Troponin: Troponin T < 0.010 ng/mL (0.00-0.029) 10/18/20 18:59
--- NOTE | 2020-10-19 10:46 | Progress Note ---
Assessment and Plan - Patient Problems (1) Acute appendicitis Current Visit: Yes Status: Acute Qualifiers: Acute appendicitis type: with localized peritonitis Appendicitis gangrene presence: without gangrene Appendicitis perforation presence: without perforation Appendicitis abscess presence: without abscess Qualified Code(s): K35.30 - Acute appendicitis with localized peritonitis, without perforation or gangrene Plan to address problem: 1) Ready for discharge 2) See my recommendations from yesterday's note. Subjective Date of service: 10/19/20 Patient Reports: Positive: no new complaints, feels better Objective Vital Signs - 12hr 10/19/20 10/19/20 10/19/20 00:58 06:01 07:49 Temperature 98.4 F 98.1 F 99.0 F Pulse Rate 75 64 73 Respiratory 18 18 16 Rate Blood Pressure 123/70 147/81 139/97 O2 Sat by Pulse 97 98 99 Oximetry 10/19/20 08:08 Temperature Pulse Rate Respiratory Rate Blood Pressure O2 Sat by Pulse 99 Oximetry - Abdomen PM_46_EXABD1 4, PM_46_EXABD1 6, PM_46_EXABD1 8 Hernia: none - Labs 10/18/20 07:39 10/17/20 03:23
== END 2020-10-19 12:01 | disposition home or self-care (01) ==
LOC: ED 14:27 → EDBD 14:27 → 3B 17:07
PROVIDERS: ADMIT Internal Medicine; ATTEND Internal Medicine
DX: K35.30 Acute appendicitis with localized peritonitis, without perforation or gangrene (principal); R65.10 Systemic inflammatory response syndrome (SIRS) of non-infectious origin without acute organ dysfunction; K56.0 Paralytic ileus; D72.829 Elevated white blood cell count, unspecified; F17.213 Nicotine dependence, cigarettes, with withdrawal; Z85.3 Personal history of malignant neoplasm of breast
CPT/HCPCS: 36415; 44970; 71046; 74018; 74177; 80048; 80053; 81001; 83690; 84484; 85025; 88304; 93005; 96361; 96365; 96366; 96375; 96376; 99285; G0378; J1100; J1170; J1885; J2270; J2405; J2543; J2704; J2710; J7030; J7120; Q9967; 85007